=== PATIENT | male | born 1945 | race Caucasian/White ===

== ENCOUNTER 2017-08-21 16:23 | Emergency (ER) | payer OTHER ==
--- OUTSIDE RECORDS SUMMARY | 2017-08-21 16:44 | XMS REPORT ---
:1945 External Reference #:[id number] Author Organization [facility] [employer] Address [address] [place] [address] Phone [phone] Care Team Providers Name Role Phone Wilberto Diamond M.D. Primary Care Physician Unavailable Payers Type Date Identification Numbers Payment Provider Subscriber Commercial Policy Number: [id number] [employer] Ppo/Pos/Epo/Nap Jonnathan Low Group Number: [id number] [address] PayID: [id number] [place] [address] Problems Date Description Provider Status Onset: Essential hypertension Active Onset: 02/04/2015 Combined form of senile cataract José Miguel Wang M.D. 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 Active Onset: 08/31/2016 Epiretinal membrane José Miguel Wang M.D. Active Onset: 09/07/2016 Presence of intraocular lens José Miguel Wang M.D. Active Onset: 04/30/2017 Blepharoconjunctivitis Wilda Garcia O.D. 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 HCL ts drop in the [place], right eye M.D. three times a day, start the day before surgery Ketorolac 08/19 Active Solution 0.5% 10ml use one drop José Miguel J. Tromethamine in the right [place], eye three M.D. times a day, start the day before surgery Prednisolone 08/19 Active Suspension 1% 15ml 1 drops José Miguel J. Acetate right eye [place], three times M.D. a day. taper as directed Montelukast Active Tablets 10mg Diamond, Sodium / Wilberto Enriquez Amlodipine Active Tablets 10mg Sterling, Besylate / Titi Enriquez Aspirin Active Tablets 81mg Unknown / Lisinopril Active Tablets 20mg Diamond, /0000 Wilberto Enriquez Vitamin B12 Active Tablets ER 1000mcg Unknown / Trimethoprim 04/30 Hx Solution 61482-9.1 1unit 1 drop left H10.502 Wilda KRose Sulfate/Polymyx /2017 Unit/ML-% s eye three Jose, in B Sulfate - times a day O.D. 08/18 for 3 days, then discontinue Ciprofloxacin 08/31 Hx Solution 0.3% 5ml instill one José Miguel J. HCL drop in the [place], - left eye M.D. 09/19 three times /2016 a day, start the day before surgery Ilevro 08/31 Hx Suspension 0.3% 3ml 1 drop left José Miguel J. /2016 eye once [place], - daily. start M.D. 10/09 day before surgery Prednisolone 08/31 Hx Suspension 1% 10ml 1 drops left José Miguel J. Acetate eye three [place], - times a day. M.D. 10/09 taper as directed Acetazolamide 08/31 Hx Tablets 250mg 16tab 1 tab by José Miguel Haskins /2016 s mouth every [place], - 6 hours M.D. 10/09 Combigan Hx Solution 0.2-0.5% 15uni 1 drop left José Miguel Haskins / ts eye twice [place], - daily M.D. 10/09 Colchicine Hx Tablets 0.6mg Diamond, /0000 Wilberto Enriquez - 04/24 Zyrtec Allergy Hx Capsules 10mg Unknown /0000 - 04/24 Results Description No Information Procedures Date CPT Code Description Status 04/30/2017 99613 Est Patient Intermediate Exam Completed 04/26/2017 21298 Est Patient Intermediate Exam Completed 12/28/2016 47523 Est Patient Intermediate Exam Completed 09/05/2016 42909 Cataract Surgery Complex Completed 08/31/2016 28851 Ophthalmic Biometry Completed 08/31/2016 13060 Scanning Computerized Opthalmic Diagnostic Posterior Completed Seg Retina 08/31/2016 27118 Computerized Corneal Topography Completed 07/30/2016 23105 Est Patient Comprehensive Exam Completed 01/30/2016 89732 Est Patient Comprehensive Exam Completed 02/04/2015 03238 Est Patient Comprehensive Exam Completed 01/27/2014 61042 Est Patient Comprehensive Exam Completed 01/28/2013 94014 Determination Of Refractive State Completed 01/28/2013 09457 Est Patient Comprehensive Exam Completed 01/23/2012 13193 Est Patient Comprehensive Exam Completed 01/17/2011 81628 Est Patient Comprehensive Exam Completed 07/27/2008 81176 Determination Of Refractive State Completed 07/27/2008 73512 Est Patient Comprehensive Exam Completed 03/19/2007 92096 Determination Of Refractive State Completed 03/19/2007 27342 Est Patient Comprehensive Exam Completed 01/03/2005 12381 Determination Of Refractive State Completed 01/03/2005 18141 New Patient Comprehensive Exam Completed Encounters Type Date Location Provider CPT E/M Dx Office Visit 10/12/2016 8:15a José Miguel Wang MD, José Miguel Wang, 67275 J32.8 eddi Enriquez H25.811 H40.1430 Z96.1 H35.373 Office Visit 08/31/2016 8:00a José Miguel Wang MD, José Miguel Wang, [address] H25.812 Mina H40.1430 H25.811 H43.813 H35.373 Plan of Care Future Appointment(s):09/11/2017 8:30 am - Massiel Chua O.D. at José Miguel Wang MD, 08/29/2017 8:00 am - José Miguel Wang M.D. at José Miguel Wang MD , 08/28/2017 7:00 am - José Miguel Wang M.D. at José Miguel Wang [facility], 2017 - José Miguel Wang M.D.H25.811 Combined forms of age-related cataract, right eyeComments:Smoking can increase the risk of developing or worsening any eye related disease, as well as affect your overall health. If you are a smoker , we strongly recommend that you quit.If you are not a smoker, we strongly recommend that you do not start. Dense cataract in the right eye. USE THE COMBIGAN TWICE A DAY IN YOUR RIGHT EYE STARTING WHEN YOU GET HOME FROM SURGERY AND USE UNTIL YOU STOP THE CIPRO(ON )Follow up:For surgery. Please keep post op appointments as scheduled.H40.1430 Capslr glaucoma w/pseudxf lens, bilateral, stage unspZ96.1 Presence of intraocular lens
[2017-08-21 16:50] VITALS: BP 186/83
[2017-08-21] MEDS ORDERED: Lidocaine 1% MPF* 2 ML VIAL ONE (16:58)
[2017-08-21] MEDS ORDERED: Lidocaine 1% MPF* 2 ML VIAL INJ ONE (17:19)
--- NOTE | 2017-08-21 17:32 | UC ---
Sheng Carty Julia, scribed for Adelfo Ramírez MD on 08/21/17 at 1658 . Laceration HPI - HPI Summary HPI Summary: This patient is a 72 year old M presenting to [facility] due to a 0.5cm laceration to his L proximal index finger, when he was opening a package this afternoon using a blade. Pain is 2/10 in severity. Patient reports he is UTD on his vaccinations. - History Of Current Complaint Chief Complaint: UCLaceration Stated Complaint: FINGER LACERATION Time Seen by Provider: 08/21/17 16:43 Hx Obtained From: Patient Laceration Location: Finger - L proximal index Mechanism Of Injury: Sharp Trauma Onset/Duration: Sudden Onset Pain Intensity: 2 Pain Scale Used: 0-10 Numeric - Allergies/Home Medications Allergies/Adverse Reactions: Allergies Allergy/AdvReac Type Severity Reaction Status Date / Time SEASONAL Allergy Intermediate Eyes Uncoded 08/21/17 16:50 Itchy/Swollen/Red/Watery PMH/Surg Hx/FS Hx/Imm Hx - Surgical History Surgical History: Yes Surgery Procedure, Year, and Place: LEFT KNEE MENISCUS SURGERY, 2008. dental implants. left cataract surhery with IOL and transscleral capsular tension ring - Family History Known Family History: Positive: Hypertension - Social History Alcohol Use: Daily Alcohol Amount: 1 glass of wine a day Substance Use Type: None Smoking Status (MU): Never Smoked Tobacco Amount Used/How Often: smoked for approx 30 years, smoked 1 ppd When Did the Patient Quit Smoking/Using Tobacco: quit 20 yrs ago - Immunization History Most Recent Tetanus Shot: <5 YEARS Review of Systems Constitutional: Negative Skin: Other - laceration to L index finger All Other Systems Reviewed And Are Negative: Yes Physical Exam - Summary Physical Exam Summary: VITAL SIGNS: Reviewed. GENERAL: Patient is a well-developed and nourished male who is lying comfortable in the stretcher. Patient is not in any acute respiratory distress. HEAD AND FACE: Normocephalic EYES: PERRLA, EOMI x 2. EARS: Hearing grossly intact. MOUTH: Oropharynx within normal limits. NECK: Supple, trachea is midline, no adenopathy, no JVD, no carotid bruit. CHEST: Symmetric, no tenderness at palpation LUNGS: Clear to auscultation bilaterally. No wheezing or crackles. CVS: Regular rate and rhythm, S1 and S2 present, no murmurs or gallops appreciated. ABDOMEN: Soft, non-tender. Bowel sounds are normal. No abdominal abnormal pulsations. EXTREMITIES: Full ROM in all major joints, no edema, no cyanosis or clubbing. NEURO: Alert and oriented x 3. No acute neurological deficits. Speech is normal and follows commands. SKIN: Dry and warm, with a 0.5cm proximal L index finger laceration Triage Information Reviewed: Yes Vital Signs: Initial Vital Signs Temp 98.8 F 08/21/17 16:47 Pulse 35 08/21/17 16:47 Resp 18 08/21/17 16:47 BP 186/83 08/21/17 16:47 Pulse Ox 98 08/21/17 16:47 Vital Signs Reviewed: Yes Laceration Repair - Laceration Repair 1 Description: Linear Modified For Repair: No - no complications Closure Material: Sutures - 6 sutures Suture Of: Skin Suture Type: Nylon Laceration Course/Dx - Course/Dx Course Of Treatment: Laceration was repaired with no complications. Please see note. Patient will follow-up with the primary care physician or return to the emergency room in 7-10 days for suture removal. Patient is hemodynamically stable alert and oriented 3 - Differential Dx - Laceration/Wound Provider Diagnoses: Finger laceration. Discharge - Sign-Out/Discharge Documenting (check all that apply): Discharge/Admit/Transfer - Discharge Plan Condition: Stable Disposition: HOME Patient Education Materials: Laceration (DC) Referrals: Wilberto Diamond MD [Primary Care Provider] - Additional Instructions: Patient is discharged with follow-up with primary care physician. Patient is up -to-date with vaccinations. However he will contact the primary care physician and make sure that he is up-to-date on vaccinations. If not he will get the tetanus vaccine with a primary care physician or return to the urgent care. He is to return to the urgent care or follow up with the primary care physician within 7-10 days for suture removals - Billing Disposition and Condition Condition: STABLE Disposition: HOME The documentation as recorded by the Sheng gordillo Julia accurately reflects the service I personally performed and the decisions made by Darrell rangel Walter, MD.
== END 2017-08-21 17:24 | disposition home or self-care (01) ==
LOC: UCEAST 16:23
DX: S61.211A Laceration without foreign body of left index finger without damage to nail, initial encounter (principal); W26.8XXA Contact with other sharp object(s), not elsewhere classified, initial encounter; Y93.89 Activity, other specified; Y92.9 Unspecified place or not applicable; Z87.891 Personal history of nicotine dependence
CPT/HCPCS: 12001; 99211; G0463

== ENCOUNTER 2017-08-28 09:20 | Day surgery (SDC) | payer OTHER ==
[~2017-08-28 09:20] MED LIST: Acetaminophen TAB* 325 MG PO PRN; Buffered Lidocaine 0.9% SYRIN* 5 ML/SYR SYRINGE INTRADERM ONE; Cyclopentolate 1% OPTH.SOL* 2 ML BTL ONE; Ketorolac 0.5% OPHTH (NF) 0.5 % 5 ML BTL ONE; Lidocaine 1%* 5 ML VIAL ONE; Lidocaine 2% EPI 1:200000 MPF*10-20 ML VIAL ONE; Neomycin/Polymy/Dex OPTH.SUSP* MAXITROL 0.1% 5 ML ONE; Phenylephrine 2.5% OPTH.SOL* 2 ML BTL ONE; Povidone Iodine 5% OPTH* 30 ML BTL ONE; Proparacaine 0.5% OPHTH.SOL* 15 ML BTL ONE; acetaZOLAMIDE TAB* 250 MG ONE
[2017-08-28] MEDS ORDERED: Midazolam* 1 MG/ML 2 ML VIAL (2 MG) ONE (12:32)
[2017-08-28] MEDS ORDERED: Atropine 1MG/ML INJ* 1 ML VIAL ONE ×2 (12:37→12:38)
[2017-08-28] MEDS ORDERED: BSS OPTH.SOL* BTL ONE (13:18)
[2017-08-28 13:28] VITALS: BP 162/60
--- NOTE | 2017-08-29 10:40 | OP ---
DATE OF OPERATION: 08/28/17 - [facility] DATE OF : 41 SURGEON: José Miguel Wang M.D. PREOPERATIVE DIAGNOSIS: Cataract, right eye POSTOPERATIVE DIAGNOSIS: Cataract, right eye OPERATIVE PROCEDURE: Extracapsular cataract extraction with intraocular lens implant right eye. DESCRIPTION OF PROCEDURE: The patient was brought to the operating room after being given 1/2% Alcaine with epinephrine drops in the preoperative area. The eye was prepped and draped in the usual sterile fashion. Sterile drape and eyelid speculum were placed. Again, topical 1/2% Alcaine with epinephrine was given. A paracentesis incision was made at the 9 o'clock position with the No.75 blade. Clear cornea incision 2.2 x 2.2-mm was created at the 12 o'clock position starting at the anterior limbus using the 2.2-mm keratome. The anterior chamber was irrigated with 0.4 mL of 1% non-preservative intracameral lidocaine and filled with DisCoVisc. A capsulorrhexis was completed using the cystotome and the Utrata forceps. Hydrodissection was performed with balanced salt solution. The lens nucleus was removed with the Phacoemulsification handpiece without incident. Cortex was removed with the irrigation-aspiration handpiece. The capsular bag was re-inflated using DisCoVisc and an [id number] 20 implant was inserted with the shooter. 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 I decided that a capsular tension ring was inappropriate in that case for stabilization, but I also felt that the weakness was not in 'so bad that it required a suture device. So I did not put in a capsular tension ring. The irrigation-aspiration handpiece was used to remove all residual DisCoVisc. The eye was refilled with balanced salt solution and the wound checked and found to be watertight. Topical Maxitrol drops were given. [id number]/[facility] #: [id number] [facility]
== END 2017-08-28 13:27 | disposition home or self-care (01) ==
LOC: OREAST 09:20
PROVIDERS: ATTEND Specialist
DX: H25.811 Combined forms of age-related cataract, right eye (principal); H40.1430 Capsular glaucoma with pseudoexfoliation of lens, bilateral, stage unspecified; I44.0 Atrioventricular block, first degree; I10 Essential (primary) hypertension; Z87.891 Personal history of nicotine dependence; R00.1 Bradycardia, unspecified; M19.90 Unspecified osteoarthritis, unspecified site; M10.9 Gout, unspecified
CPT/HCPCS: A9270-GY; J0461; J2250; V2632

== ENCOUNTER 2017-08-30 08:32 | Emergency (ER) | payer OTHER ==
--- OUTSIDE RECORDS SUMMARY | 2017-08-30 08:39 | XMS REPORT ---
:1945 External Reference #:[id number] Author Organization [employer] Address [address] [place] [address] Phone [phone] Care Team Providers Name Role Phone Wilberto Diamond M.D. 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 a day. taper as directed Amlodipine Active Tablets 10mg Asher Besylate / Titi M.D. Aspirin Active Tablets 81mg Unknown /0000 Lisinopril Active Tablets 20mg Diamond, /0000 Jann.DRose Vitamin B12 Active Tablets ER 1000mcg Unknown / Combigan Active Solution 0.2-0.5% 10uni 1 drop right José Miguel J. / ts eye twice [place], daily M.D. Cialis Active Tablets 5mg Unknown /0000 Colchicine Active Capsules 0.6mg Unknown /0000 Trimethoprim 04/30 Hx Solution 68148-7.1 1unit 1 drop left H10.502 Wilda K. Sulfate/Polymyx Unit/ML-% s eye three [place], in B Sulfate - times a day [...] start M.D. 10/09 day before surgery Prednisolone 05/26 Hx Suspension 1% 10ml 1 drops left José Miguel Haskins eye three [place], - times a day. M.D. 10/09 taper directed Acetazolamide 08/31 Hx Tablets 250mg 16tab 1 tab by José Miguel Haskins s mouth every [place]leo, - 6 hours M.D. 10/09 Montelukast Hx Tablets 10mg Diamond, Sodium / Wilberto Enriquez - 08/28 Combigan Hx Solution 0.2-0.5% 15uni 1 drop left José Miguel Haskins ts eye twice [place], - daily M.D. 10/09 Colchicine Hx Tablets 0.6mg Diamond, /0000 Wilberto Enriquez - 04/24 Zyrtec Allergy Hx Capsules 10mg Unknown /0000 - 04/24 Results Description No Information Procedures Date CPT Code Description Status 08/28/2017 68348 Extracapsular Cataract Extraction W/Intraocular Lens Completed 08/19/2017 30635 Ophthalmic Biometry Completed 04/30/2017 56050 Est Patient Intermediate Exam Completed 04/26/2017 39490 Est Patient Intermediate Exam Completed 12/28/2016 56151 Est Patient Intermediate Exam Completed 09/05/2016 14776 Cataract Surgery Complex Completed 08/31/2016 53563 Ophthalmic Biometry Completed 08/31/2016 31658 Scanning Computerized Opthalmic Diagnostic Posterior Completed Seg Retina 08/31/2016 66222 Computerized Corneal Topography Completed 07/30/2016 31042 Est Patient Comprehensive Exam Completed 01/30/2016 94543 Est Patient Comprehensive Exam Completed 02/04/2015 80385 Est Patient Comprehensive Exam Completed 01/27/2014 28724 Est Patient Comprehensive Exam Completed 01/28/2013 50832 Determination Of Refractive State Completed 01/28/2013 13638 Est Patient Comprehensive Exam Completed 01/23/2012 32182 Est Patient Comprehensive Exam Completed 01/17/2011 30854 Est Patient Comprehensive Exam Completed 07/27/2008 27024 Determination Of Refractive State Completed 07/27/2008 69445 Est Patient Comprehensive Exam Completed 03/19/2007 23741 Determination Of Refractive State Completed 03/19/2007 11674 Est Patient Comprehensive Exam Completed 01/03/2005 22812 Determination Of Refractive State Completed 01/03/2005 59055 New Patient Comprehensive Exam Completed Encounters Type Date Location Provider CPT E/M Dx Office Visit 08/19/2017 José Miguel Wang MD, José Miguel Wang, 713[address] H25.811 8:00a eddi Enriquez H40.1430 Z96.1 Office Visit 10/12/2016 8:15a José Miguel Wang MD, José Miguel Wang M.D. 87741 J32.8 pc H25.811 H40.1430 Z96.1 H35.373 Office Visit 08/31/2016 8:00a José Miguel Wang MD, José Miguel Wang, [address]14[address] H25.812 pc Mina H40.1430 H25.811 H43.813 H35.373 Plan of Care Future Appointment(s):09/11/2017 8:30 am - Massiel Chua O.D. at José Miguel Wang MD, 08/29/2017 - José Miguel Wang M.D.Z96.1 Presence of intraocular lensComments:The artifical lens implant in your right eye appears to be stable. Since this is the first day after surgery, your right eye is still dilated and the vision will still be slightly blurry. The dilation will go down over the next day or two. Continue taking your eye drops as directed on the surgical calendar. If you have any questions, please call our office. Smoking can increase the risk of developing or worsening any eye related disease , as well as affect your overall health. If you are a smoker, we strongly recommend that you quit.If you are not a smoker, we strongly recommend that you do not start.H40.1430 Capslr glaucoma w/pseudxf lens, bilateral, stage unspFollow up:6 Month Follow Up RADFE/IOP You can expect to have your eyes dilated at your next visit. If Dr. Wang orders any additional testing, it may require extra time. We recommend that you bring sunglasses,as dilation drops often make you light sensitive until they wear off. We always recommend you bring someone to drive you home if you are uncomfortable driving with your eyes dilated. If you have any questions before your next visit, feel free to call our office at .
[2017-08-30 08:48] VITALS: BP 132/57
--- NOTE | 2017-08-30 09:23 | ED ---
Skin Complaint - HPI Summary HPI Summary: 72 yo WM presents for sure removal on left index finger, sutures placed 9 days ago, some sutures fell out per pt - History of Current Complaint Chief Complaint: UCSkin Time Seen by Provider: 08/30/17 08:54 Stated Complaint: STITCHES REMOVAL Hx Obtained From: Patient Onset/Duration: Started Days Ago Skin Exposure Onset/Duration: Days Ago Timing: Lasting Days Onset Severity: Mild Current Severity: Mild Pain Intensity: 0 - Allergy/Home Medications Allergies/Adverse Reactions: Allergies Allergy/AdvReac Type Severity Reaction Status Date / Time SEASONAL Allergy Intermediate Eyes Uncoded 08/30/17 08:48 Itchy/Swollen/Red/Watery PMH/Surg Hx/FS Hx/Imm Hx Previously Healthy: Yes Cardiovascular History: Reports: Hx Hypertension - controlled with medication, Other Cardiovascular Problems/Disorders - irregular heart rate, Dr. Sterling aware and monitors, not problematic Musculoskeletal History: Reports: Hx Arthritis - knees, Hx Tendonitis, Other Musculoskeletal History - occasional gout, prn medication Sensory History: Reports: Hx Cataracts - right, Hx Contacts or Glasses - reading Denies: Hx Glaucoma, Hx Hearing Aid Opthamlomology History: Reports: Hx Cataracts - right, Hx Contacts or Glasses - reading Denies: Hx Glaucoma - Cancer History Hx Chemotherapy: No - Surgical History Surgery Procedure, Year, and Place: LEFT KNEE MENISCUS SURGERY, 2009. dental implants. left cataract surhery with IOL and transscleral capsular tension ring Hx Anesthesia Reactions: No - has been told he is a "difficult intubation" Infectious Disease History: No Infectious Disease History: Denies: Traveled Outside the [place] in Last 30 Days - Family History Known Family History: Positive: Hypertension - Social History Alcohol Use: Daily Alcohol Amount: 1 glass of wine a day Substance Use Type: Reports: None Smoking Status (MU): Never Smoked Tobacco Amount Used/How Often: smoked for approx 30 years, smoked 1 ppd Review of Systems Constitutional: Negative Eyes: Negative ENT: Negative Cardiovascular: Negative Respiratory: Negative Gastrointestinal: Negative Genitourinary: Negative Skin: Other - suture removal on left index finger All Other Systems Reviewed And Are Negative: Yes Physical Exam Triage Information Reviewed: Yes Vital Signs On Initial Exam: Initial Vitals Temp Pulse Resp BP Pulse Ox 36.6 C 31 18 132/57 100 08/30/17 08:45 08/30/17 08:45 08/30/17 08:45 08/30/17 08:45 08/30/17 08:45 Vital Signs Reviewed: Yes Appearance: Positive: Well-Appearing Skin: Positive: Warm, Other - left index finger medial dorsal portion laceration wound edges moist due to abx application with most of sutures intact but approximated almost entirely, no d/c Eyes: Positive: Normal ENT: Positive: Normal ENT inspection Neck: Positive: Supple Respiratory/Lung Sounds: Positive: Clear to Auscultation Cardiovascular: Positive: Normal Musculoskeletal: Positive: Normal Neurological: Positive: Normal, Sensory/Motor Intact Diagnostics - Vital Signs Vital Signs Temp Pulse Resp BP Pulse Ox 08/30/17 08:45 36.6 C 31 18 132/57 100 - Laboratory Lab Statement: Any lab studies that have been ordered have been reviewed, and results considered in the medical decision making process. Course/Dx - Course Course Of Treatment: sutures removed with steri-strip application. Woundcare instructions given, keep wound dry - Diagnoses Provider Diagnoses: Encounter for removal of sutures, Laceration of left index finger Discharge - Sign-Out/Discharge Documenting (check all that apply): Discharge/Admit/Transfer - Discharge Plan Condition: Stable Disposition: HOME Patient Education Materials: Stitches Removal (ED) Referrals: Wilberto Diamond MD [Primary Care Provider] - - Billing Disposition and Condition Condition: STABLE Disposition: HOME
== END 2017-08-30 09:22 | disposition home or self-care (01) ==
LOC: UCEAST 08:32
DX: S61.211D Laceration without foreign body of left index finger without damage to nail, subsequent encounter (principal); W45.8XXD Other foreign body or object entering through skin, subsequent encounter; I10 Essential (primary) hypertension; I49.9 Cardiac arrhythmia, unspecified

== ENCOUNTER → 2018-01-30 09:27 | Day surgery (SDC) | payer MEDICARE ==
[~2018-01-30 09:27] MED LIST changes: +Bupivacaine 0.5% SDV PF* 30ML VIAL ONE; -Cyclopentolate 1% OPTH.SOL* 2 ML BTL ONE; +DiMENhydriNATE IV* 50 MG/ML VIAL IV PUSH PRN; +Famotidine IV* 10 MG/ML 2 ML (20 mg) IV ONE; +Famotidine IV* 10 MG/ML 2 ML (20 mg) ONE; -Ketorolac 0.5% OPHTH (NF) 0.5 % 5 ML BTL ONE; +Ketorolac INJ* 30 MG/ML 1 ML VIAL ONE; -Lidocaine 1%* 5 ML VIAL ONE; -Lidocaine 2% EPI 1:200000 MPF*10-20 ML VIAL ONE; +Lidocaine 2% PF* 10 ML AMP ONE; +Midazolam* 1 MG/ML 5 ML VIAL (5 MG) ONE; +Naloxone* 0.4 MG/ML 1 ML VIAL IV PRN; -Neomycin/Polymy/Dex OPTH.SUSP* MAXITROL 0.1% 5 ML ONE; -Phenylephrine 2.5% OPTH.SOL* 2 ML BTL ONE; -Povidone Iodine 5% OPTH* 30 ML BTL ONE; -Proparacaine 0.5% OPHTH.SOL* 15 ML BTL ONE; -acetaZOLAMIDE TAB* 250 MG ONE; +ceFAZolin 2 GM PREMIX in ORs 2 GM/50 ML BAG IVPB ONE; +fentaNYL* 50 MCG/ML 2 ML VIAL (100 MCG VIAL) ONE; +oxyCODONE TAB* 5 MG TAB PO PRN
--- NOTE | 2018-01-30 12:24 | OP ---
Operative Report - Blank - Operative Report Date of Operation: 01/30/18 Note: PATIENT: Jonnathan Low DATE OF : 1945 DATE OF SURGERY: 01/30/2018 SURGEON: Bud De Leon MD HAND SPRING REPAIRER: ANNE Scott, whos assistance was necessary for positioning, retraction, and closure. ANESTHESIOLOGIST: Dr. Nicolas PREOPERATIVE DIAGNOSIS: Right great toe mass POSTOPERATIVE DIAGNOSIS: Right great toe mass OPERATION: Right great toe mass excision ANESTHESIA: MAC with local anesthesia provided by surgeon IMPLANTS: none TOURNIQUET TIME: none SPECIMENS: mass to pathology ESTIMATED BLOOD LOSS: minimal COMPLICATIONS: none STATUS: Stable from the operating room to the recovery room and then home. INDICATIONS FOR PROCEDURE: Jonnathan has had a right great toe mass that causes him discomfort. Both operative and non operative treatment alternatives were reviewed. Further, the nature and risks of surgery were reviewed in careful detail, in the office as well as the pre-operative holding area. Our discussions regarding the risks of surgery included, but were not limited to, infection, wound problems, nerve injury, neuroma, RSD, persistent symptoms, blood clot, recurrence, failure of the surgery, and even the remote chance of catastrophic complication, including loss of limb. DESCRIPTION OF PROCEDURE: The patient was seen in the preoperative holding unit and informed written consent was obtained. The appropriate extremity was marked. The patient was then brought to the operating room and carefully positioned on the operating room table. Anesthesia was induced. All bony prominences were padded with great care. A chlorhexidine based pre-scrub was performed followed by a chloraprep prep and drape in standard sterile fashion. A surgical safety pause was then conducted in which we confirmed the appropriate patient, extremity, planned procedure, availability of equipment, indication and administration of prophylactic antibiotics, and DVT prophylaxis in the form of a compression boot on the non-surgical extremity. The mass measured 1cm in diameter. I made a longitudinal dorsal hallux incision and then careful blunt dissection was made to get down to the deep layer overlying the mass. Blunt dissection was then utilized to define the mass. The mass was then excised. No remaining mass was appreciated. Hemostasis was obtained. The toe was pink, well-perfused and with excellent capillary refill. At this point, we irrigated copiously and then closed in layers meticulously utilizing 3-0 Monocryl and 3-0 nylon for the skin. A sterile dressing was then applied. The patient was then awakened from anesthesia and transferred to the recovery room in stable condition. There were no complications. All needle and sponge counts were correct at the end of the case. ATTESTATION: I attest I was present and scrubbed and performed the critical portions of the procedure myself. POSTOPERATIVE PLAN: She will follow-up in 2 weeks for likely suture removal.
[2018-01-30 12:51] VITALS: BP 160/72
== END | disposition home or self-care (01) ==
LOC: OR 09:27
PROVIDERS: ATTEND Orthopaedic Surgery
DX: L72.9 Follicular cyst of the skin and subcutaneous tissue, unspecified (principal); Z87.891 Personal history of nicotine dependence; I10 Essential (primary) hypertension; R00.1 Bradycardia, unspecified; M19.90 Unspecified osteoarthritis, unspecified site; I34.0 Nonrheumatic mitral (valve) insufficiency
CPT/HCPCS: 88304; J0690; J1885; J2001; J2250; J3010